=== PATIENT | male | born 2000 | race Hispanic/Latino ===

== ENCOUNTER 2023-11-23 17:02 | Emergency (ER) | payer OTHER, SELFPAY ==
[2023-11-23 17:20] VITALS: BP 121/81
[2023-11-23 17:42] LABS: % Basophils 0.9 % (0-2); % Eosinophils 0.5 % (0-6); % Immature Granulocytes 0.1 % (0-0.5); % Lymphocytes 16.6 % (20.5-51.1); % Monocytes 6.4 % (1.7-9.3); % Neutrophils 75.5 % (42.2-75.2); Absolute Basophils 0.1 10^3/uL (0-0.2); Absolute Lymphocytes 1.4 10^3/uL (1.2-3.4); Absolute Monocytes 0.5 10^3/uL (0.1-0.6); Absolute Neutrophils 6.1 10^3/uL (1.4-6.5); Hematocrit 40.2 % (39.0-52.0); Hemoglobin 14.6 g/dL (13.0-18.0); Mean Corp Hgb Conc. 36.3 g/dL (33.0-37.0); Mean Corpuscular Hgb 30.7 pg (27.0-31.0); Mean Corpuscular Volume 84.6 fL (80.0-94.0); Mean Platelet Volume 9.7 fL (7.4-10.4); Nucleated Red Blood Cells % 0 % (-); Platelet Count 230 10^3/uL (130-400); Red Blood Cell Count 4.75 10^6/uL (4.70-6.10); Red Cell Dist. Width 13.8 % (11.5-14.5); White Blood Cell Count 8.1 10^3/uL (4.8-10.8)
[2023-11-23 17:48] LABS: Erythrocyte Sed Rate 10 mm/hour (0-20)
[2023-11-23 17:56] LABS: ALT (SGPT) 30 U/L (0-50); AST (SGOT) 27 U/L (17-59); Albumin 5.1 g/dl (3.5-5.0); Alkaline Phosphatase 81 U/L (38-126); Blood Urea Nitrogen 20 mg/dl (9-20); Calcium 10.1 mg/dl (8.4-10.2); Carbon Dioxide 22 mmol/L (22-30); Chloride 104 mmol/L (98-107); Glucose 142 mg/dl (70-99); Potassium 3.8 mmol/L (3.5-5.1); Sodium 139 mmol/L (135-145); Total Bilirubin 0.9 mg/dl (0.2-1.3); Total Protein 7.7 g/dl (6.3-8.2); eGFR > 60.00
[2023-11-23 18:01] LABS: C-Reactive Protein < 5.00 mg/L (0.0-10.00)
--- NOTE | 2023-11-23 19:31 | ED.GENMED ---
History of Present Illness
General
Chief Complaint: Musculo-Skeletal Complaint
Source: patient and records
Time Seen by Provider: 11/23/23 19:19
Travel History
Have you had any contact with someone who has COVID-19?: No
Do you have any symptoms of coronavirus? Fever > 100 degrees, chills, cough, shortness of breath, sore throat, loss of taste or smell, muscle aches, or headache?: No
History of Present Illness
History of Present Illness:
23-year-old male with past medical history of multiple sclerosis presenting to the emergency department for evaluation of atraumatic right hip pain that started over the last 2 to 3 days. Patient states that he had a similar pain in his left hip
previously that required him to need surgery in hip and knee due to an infection about 2 years. Patient is denying any fevers, chills, rigors, GI related symptoms, rashes, urinary symptoms or any other concerns. Did not take any medications for
his pain prior to arrival. He notes that around a year or so ago he had been doing physical therapy for the joint complications in the left leg. Patient is treated with rituximab since 2018 at [facility]. He has no other concerns at this time.
Past History
Past History
ED Past Medical History: Other (MS); Negative Asthma, HTN, Hypercholesterolemia or NIDDM
ED Past Surgical History: None
Social History
Tobacco: Non-smoker
Alcohol: None
Drug: None
Personal: Single
Living: with family
Review of Systems
Review of Systems
All Other Systems: ROS reviewed and negative except as documented in HPI and ROS
Phy Exam
Physical Exam
Physical Exam:
GENERAL: Alert , in no apparent distress
HEAD: NCAT
EYE: conjunctiva clear
NECK: Supple
ENT: o/p clr, mmm.
CARDIAC: Regular rate and rhythm
LUNGS: Clear breath sounds bilaterally, no acute respiratory distress, no wheezes/rales/rhonchi
Abdomen: Soft, nontender, nondistended
NEUROLOGICAL: Alert and oriented
SKIN: Warm and dry, skin intact. Scars to the anterior knee and anterior left thigh
MUSCULOSKELETAL: Right lower extremity: No obvious deformity, erythema, edema, ecchymosis, abrasions or lacerations. Patient does allow for full active and passive range of motion of the right lower leg. He does report some mild disc with range of
motion at the level of the right hip. There is some very mild tenderness along the anterior portion of the proximal thigh but no overlying tenderness over the femoral head or inguinal region. No lymphadenopathy appreciated within the inguinal
region and no hernias appreciated. Easily palpable femoral pulse. Cap refill less than 2 seconds.
PSYCH: Normal and appropriate interaction.
Scores
Heart Failure Risk
Heart Failure Risk Score: Not Applicable
Heart Score for Chest Pain Patients
STEMI patient?: Not applicable
Withdrawal Assessment of Alcohol
Withdrawal Assessment Completed?: Not applicable
Course
Orders/Labs/Results
Orders:
Orders
11/23/23 17:26
Hip, Right 2-3 Views [CR Hip - RT w/wo Pel 2-3 Vw*] Urgent
Comment:
Reason For Exam: pain, no injury
Include a pelvis x-ray?: No
11/23/23 17:32
C-Reactive Protein Urgent
CMP [Comprehensive Metabolic Panel] Urgent
Complete Blood Count/With Diff Urgent
Erythrocyte Sed Rate Urgent
Abnormal Lab Results
11/23/23
17:32
Neutrophils % 75.5 H %
(42.2-75.2)
Lymphocytes % 16.6 L %
(20.5-51.1)
Glucose 142 H mg/dl
(70-99)
Albumin 5.1 H g/dl
(3.5-5.0)
11/23/23 17:32
11/23/23 17:32
Vital Signs
Initial and Last Documented VS:
Initial Vital Signs
Temp Pulse Resp BP Pulse Ox
98.9 F 98 16 121/81 100
11/23/23 17:20 11/23/23 17:20 11/23/23 17:20 11/23/23 17:20 11/23/23 17:20
Last Documented Vital Signs
Temp Pulse Resp BP Pulse Ox
98.6 F 90 18 122/82 100
11/23/23 20:43 11/23/23 20:43 11/23/23 20:43 11/23/23 20:43 11/23/23 20:43
MDM/Problems Addressed
Differential Diagnosis Includes:
Strain, no concern for fracture, septic arthritis considered given patient's history however he is afebrile, no overlying erythema and allows for range of motion without much difficulty
MDM/Problems Addressed:
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 Patient was
told that if he were to have symptoms like this again he should go back to the emergency department which is why he is here today. Overall my suspicion for septic joint is low given patient is afebrile, allows for full range of motion and labs that
were started in triage show no leukocytosis and a normal ESR and CRP. X-ray is pending. Anticipate discharge home following x-ray. Patient will take NSAIDs/Tylenol as needed for pain and follow-up closely with primary care provider.
I reviewed patient's history and physical from rehab in September 2022 which showed that patient was initially diagnosed with a urinary tract infection which then developed into conjunctivitis with periorbital edema and treated with Rocephin,
doxycycline and metronidazole. He had left hip and knee washout with a diagnosis of reactive arthritis. Patient reports no long-term chronic complications from this.
*Radiology
Radiology exam reviewed: preliminary read by ED provider (Normal x-ray)
*Pulse Oximetry
Patient hypoxic: no
*Critical Care Note
Total Time (30-74mins, 75-104mins- exclusive of procedures): Not Applicable
Data Reviewed
Review of Other/Old Records Reveals: Records
Source: patient and family
Patient Management
Escalation/DeEscalation of care consider admission/obs:
Patient's labs and x-ray are unremarkable. He was able to ambulate without any difficulty. Advise close follow-up with primary care provider. Aware return precautions to the ER.
ED Attending Note
-
Portions of this chart may have been created with voice recognition software.� Occasional wrong word or��sound alike� substitutions may have occurred due to the inherent limitations of voice recognition software.
Discharge Plan
Departure
Patient Disposition: Home (Routine Discharge)
Date of Disposition: 11/23/23
Time of Disposition: 19:59
Patient with high blood pressure during this ER visit?: No
Discharge Problem:
Acute right hip pain
Instructions: Hip Pain ED
Prescriptions:
No Action
rituximab
1 dose IV [id number]
Rx Instructions:
Given Q3 months at [facility]
acetaminophen [Tylenol] 325 mg Tablet
650 mg PO Q4H PRN (Reason: Mild)
cholecalciferol (vitamin D3) [Vitamin D3] 25 mcg (1,000 unit) Capsule
25 mcg PO DAILY
fingolimod 0.5 mg Capsule
0.5 mg PO DAILY
Referrals:
Emilie Montero MD [Family Provider] -
Interventions
Interventions:
*Risk Screen - Suicide Last Done: 11/23/23 20:13
*General Assessment Last Done: 11/23/23 20:13
*Neglect/Abuse Screening Last Done: 11/23/23 20:13
ED- Fall Risk Assessment Last Done: 11/23/23 20:36
*ED COVID-19 Vaccine History Last Done: 11/23/23 17:20
*Nursing Disposition Last Done: 11/23/23 20:43
ED-Musculoskeletal Assessment Last Done: 11/23/23 20:36
Discharge Date and Time
Discharge Date/Time: 11/23/23 20:53
Print Language: [id number]
[2023-11-23 20:13] VITALS: BMI 21.5
[2023-11-23 20:43] VITALS: BP 122/82
== END 2023-11-23 20:53 | disposition home or self-care (01) ==
LOC: EMR 17:02
PROVIDERS: Emergency Medicine; EMERGENCY PHYSICIAN Emergency Medicine; FAMILY PHYSICIAN Family Medicine
DX: M25.551 Pain in right hip (principal); G35 Multiple sclerosis; Z79.2 Long term (current) use of antibiotics
CPT/HCPCS: 99283; 73502; 80053; 85025; 85652; 86140

== ENCOUNTER 2024-03-09 11:04 | Outpatient (RCR) | payer OTHER, SELFPAY | END 2024-03-09 23:59 | disposition home or self-care (01) | LOC: RPT 11:04 | PROVIDERS: ATTENDING PHYSICIAN Pediatrics; FAMILY PHYSICIAN Family Medicine | DX: G35 Multiple sclerosis (principal); Z73.6 Limitation of activities due to disability | CPT/HCPCS: 97110; 97162; 97530 ==

== ENCOUNTER 2024-04-06 11:01 | Outpatient (RCR) | payer OTHER, SELFPAY | END 2024-04-06 23:59 | disposition home or self-care (01) | LOC: RPT 11:01 | PROVIDERS: ATTENDING PHYSICIAN Pediatrics; FAMILY PHYSICIAN Family Medicine | DX: G35 Multiple sclerosis (principal); Z73.6 Limitation of activities due to disability | CPT/HCPCS: 97110; 97112 ==

== ENCOUNTER 2024-04-27 11:32 | Outpatient (RCR) | payer OTHER, SELFPAY | END 2024-04-30 23:59 | disposition home or self-care (01) | LOC: RPT 11:32 | PROVIDERS: ATTENDING PHYSICIAN Pediatrics; FAMILY PHYSICIAN Family Medicine | DX: G35 Multiple sclerosis (principal); Z73.6 Limitation of activities due to disability | CPT/HCPCS: 97110; 97112; 97530 ==

== ENCOUNTER 2024-05-04 00:20 | Emergency (ER) | payer OTHER, SELFPAY ==
[2024-05-04 00:21] VITALS: BP 128/100
--- NOTE | 2024-05-04 00:28 | ED.GENMED ---
History of Present Illness
<YONIS Luo - Last Filed: 05/04/24 05:58>
General
Chief Complaint: Bowel Problem
Source: patient
Exam Limitations: none
Time Seen by Provider: 05/04/24 00:27
Nursing documentation reviewed up to this point in time: agreed with
History of Present Illness
History of Present Illness:
Pt is a 23 y/o M w/ PMH of MS who presents today with constipation over the past week without a BM. He states he has had a few episodes of constipation over the past few months but not this long in timing and they have resolved without medications
before. He states he has some associated discomfort and a feeling of fullness diffusely across his abdomen. He states he has not tried any laxatives/stool softeners. He notes he is still able to pass gas, with most recent episode within the past 2
hours when he was sitting on the toilet. Pt admits he takes baclofen and gabapentin chronically for MS. Pt states he has a neurology appt scheduled this upcoming week at [facility] to discuss the constipation. Pt denies fever, MEDINA, nausea, vomiting, back
pain, changes in urination.
Past History
<YONIS Luo - Last Filed: 05/04/24 05:58>
Past History
ED Past Medical History: Other (MS); Negative Asthma, HTN, Hypercholesterolemia or NIDDM
ED Past Surgical History: None
Social History
Tobacco: Non-smoker
Alcohol: None
Drug: None
Personal: Single
Living: with family
Review of Systems
<YONIS Luo - Last Filed: 05/04/24 05:58>
Review of Systems
Allergies reviewed?: Yes
Constitutional: Reports no symptoms
EENT: Reports no symptoms
Respiratory: Reports no symptoms
Cardiac: Reports no symptoms
ABD/GI: Reports abdominal pain (mild discomfort) and constipated
: Reports no symptoms
Musculoskeletal: Reports no symptoms
Neurological: Reports no symptoms
Phy Exam
<YONIS Luo - Last Filed: 05/04/24 05:58>
General Physical Exam
General Presentation: well appearing
General age: appears stated age
General Skin: warm and dry
General Mental: alert
General Hydration: appears well hydrated
Cardiovascular Exam
Cardiovascular Exam: regular rate/rhythm and no murmur
Pulmonary Exam
Pulmonary Exam: lungs clear and no respiratory distress
Gastrointestinal Exam
Gastrointestinal Exam: non tender, abnormal bowel sounds (decreased) and distended (mildly)
Course
<YONIS Luo - Last Filed: 05/04/24 05:58>
Orders/Labs/Results
Orders:
Orders
05/04/24 00:34
CR Abdomen - 1 View Urgent
Comment:
Reason For Exam: constipation
05/04/24 01:17
Magnesium Citrate [Citroma] 300 ml PO ONCE ONE
Vital Signs
Initial and Last Documented VS:
Initial Vital Signs
Temp Pulse Resp BP Pulse Ox
98.2 F 84 20 128/100 100
05/04/24 00:21 05/04/24 00:21 05/04/24 00:21 05/04/24 00:21 05/04/24 00:21
Last Documented Vital Signs
Temp Pulse Resp BP Pulse Ox
98.3 F 81 16 100/77 98
05/04/24 01:03 05/04/24 01:03 05/04/24 01:03 05/04/24 01:03 05/04/24 01:03
<Cory Ferguson DO - Last Filed: 05/04/24 01:38>
Orders/Labs/Results
Orders:
Orders
05/04/24 00:34
CR Abdomen - 1 View Urgent
Comment:
Reason For Exam: constipation
05/04/24 01:17
Magnesium Citrate [Citroma] 300 ml PO ONCE ONE
Vital Signs
Initial and Last Documented VS:
Initial Vital Signs
Temp Pulse Resp BP Pulse Ox
98.2 F 84 20 128/100 100
05/04/24 00:21 05/04/24 00:21 05/04/24 00:21 05/04/24 00:21 05/04/24 00:21
Last Documented Vital Signs
Temp Pulse Resp BP Pulse Ox
98.3 F 81 16 100/77 98
05/04/24 01:03 05/04/24 01:03 05/04/24 01:03 05/04/24 01:03 05/04/24 01:03
<YONIS Luo - Last Filed: 05/04/24 05:58>
MDM/Problems Addressed
Differential Diagnosis Includes:
constipation
Chronic conditions affecting care: Neurological disorder
<DO David Burr Last Filed: 05/04/24 01:38>
MDM/Problems Addressed
Differential Diagnosis Includes:
Abdominal pain, small bowel obstruction, colitis, constipation
<YONIS uLo - Last Filed: 05/04/24 05:58>
*Critical Care Note
Total Time (30-74mins, 75-104mins- exclusive of procedures): Not Applicable
ED Attending Note
<YONIS Luo - Last Filed: 05/04/24 05:58>
-
Portions of this chart may have been created with voice recognition software.� Occasional wrong word or��sound alike� substitutions may have occurred due to the inherent limitations of voice recognition software.
<DO David Burr Last Filed: 05/04/24 01:38>
ED Attending Note
Patient seen and examined by attending physician: Yes
I performed the substantive portion of visit, reviewed & personally made and approve the management plan that is documented in note by myself or YUE.: Yes
ED Attending Note:
Pleasant 23-year-old male presents with constipation. He states that his last bowel movement was 6 days ago. Patient has a history of MS at has had constipation in the past. He states that he did not take anything at home because he 'thought it
would resolve on its own'. Prior episodes of constipation did not last quite as long and were self-limited. Patient states that he is able to pass gas. Denies fever, chills, chest pain, or shortness of breath. States that the pain is a dull
ache. Patient is due to see neurology this week to discuss his constipation issues. Patient was seen in conjunction with the PA student. I have reviewed and agree with the history and treatment plan presented. On my independent physical exam,
patient is awake, alert, and oriented x3, no acute distress. Heart is regular rate rhythm. Patient in no respiratory distress. Abdomen is soft nontender nondistended. Good bowel sounds x 4 quadrants. Skin is warm and dry. Moves all 4
extremities.
X-ray shows heavy stool pattern without evidence of obstruction.
Discharge Plan
Departure
Patient Disposition: Home (Routine Discharge)
Date of Disposition: 05/04/24
Time of Disposition: 01:32
Patient with high blood pressure during this ER visit?: No
Condition: Good
Discharge Problem:
Constipation, Abdominal pain
Instructions: Constipation, Adult (DC), Abdominal Pain
Prescriptions:
No Action
rituximab
1 dose IV [id number]
Rx Instructions:
Given Q3 months at [facility]
acetaminophen [Tylenol] 325 mg Tablet
650 mg PO Q4H PRN (Reason: Mild)
cholecalciferol (vitamin D3) [Vitamin D3] 25 mcg (1,000 unit) Capsule
25 mcg PO DAILY
fingolimod 0.5 mg Capsule
0.5 mg PO DAILY
Referrals:
Emilie Montero MD [Family Provider] -
Activity Restrictions/Additional Instructions:
Please take one half the bottle of magnesium citrate provided when you get home. Wait at least 6 hours for results. If no results repeat with the other half of the bottle. If he still of no results, return to the ER.
It was a pleasure meeting you and taking part in your care. We hope for your continued healing and wellness.
Please read discharge instructions in their entirety. However, they are for general education and may not describe your exact diagnosis at discharge. Information on your ER visit and medical conditions were discussed with you along with appropriate
follow up information...
If indicated, please take your medications as instructed and indicated on discharge paperwork.
Please schedule a follow up appointment as directed. Call to schedule an appointment
Please return to the emergency department with ANY change in, persisting, or worsening of symptoms. If any of your symptoms do not improve, or persist, or become more severe within 6-12 hours, please return to the emergency department for further
care.
Please return to the emergency department if you develop a headache, neck pain/stiffness, fever greater than 100.4F, chest pain, shortness of breath, persistent nausea, vomiting, slurred speech, difficulty walking, numbness/tingling, weakness, signs
of infection or any other symptoms that are worrisome to you.
If you have any questions or concerns please do not hesitate to call the Hospital at or E-mail me directly at [email or web address]
Interventions
Interventions:
*Risk Screen - Suicide Last Done: 05/04/24 00:21
*General Assessment Last Done: 05/04/24 01:04
*Neglect/Abuse Screening Last Done: 05/04/24 00:21
ED- Fall Risk Assessment Last Done: 05/04/24 01:40
*ED COVID-19 Vaccine History Last Done: 05/04/24 01:04
*Nursing Disposition Last Done: 05/04/24 01:40
CD-Hjyuxv-Cgtpculsml Assessment Last Done: 05/04/24 01:04
Discharge Date and Time
Discharge Date/Time: 05/04/24 02:40
Print Language: ROMANSH
[2024-05-04 01:03] VITALS: BP 100/77; BMI 22.6
[2024-05-04] MEDS: CITROMA 300 ML PO (01:44)
== END 2024-05-04 02:40 | disposition home or self-care (01) ==
LOC: EMR 00:20
PROVIDERS: EMERGENCY PHYSICIAN Student in an Organized Health Care Education/Training Program; FAMILY PHYSICIAN Family Medicine
DX: K59.00 Constipation, unspecified (principal); G35 Multiple sclerosis; Z79.899 Other long term (current) drug therapy
CPT/HCPCS: 99283; 74018

== ENCOUNTER 2024-05-28 09:04 | Outpatient (RCR) | payer OTHER, SELFPAY | END 2024-05-28 10:05 | disposition home or self-care (01) | LOC: RPT 09:04 | PROVIDERS: ATTENDING PHYSICIAN Pediatrics; FAMILY PHYSICIAN Family Medicine | DX: G35 Multiple sclerosis (principal); Z73.6 Limitation of activities due to disability; M79.605 Pain in left leg; M79.604 Pain in right leg; M62.838 Other muscle spasm; R26.89 Other abnormalities of gait and mobility | CPT/HCPCS: 97110; 97112; 97116; 97530 ==